=== PATIENT | male | born 1985 | race Caucasian/White ===

== ENCOUNTER 2020-10-03 10:34 | Observation (INO) ==
[2020-10-03] MEDS ORDERED: Ondansetron 4 MG/2 ML VIAL IVP ONE ×2 (10:55→12:50)
[2020-10-03] MEDS ORDERED: Morphine Sulfate 2 MG/ML SYRINGE IVP ONE (10:55)
[2020-10-03] MEDS ORDERED: Isovue-370 500 ML BOTTLE IVP ONE (10:57)
[2020-10-03 11:02] LABS: Bilirubin,Urine Negative (Negative); Blood,Urine Negative (Negative); Clarity,Urine Clear (Clear); Color,Urine Light-Yellow (Yellow); Glucose,Urine (UA) Normal (Normal); Ketones,Urine 20 mg/dL (Negative); Leukocyte Esterase,Urine Negative (Negative); Nitrite,Urine Negative (Negative); Protein,Urine Trace mg/dL (Neg-Trace); Specific Gravity,Urine 1.024 (1.010-1.025); Urobilinogen,Urine Normal (Normal)
[2020-10-03 11:26] LABS: Basophils # 0.1 K/mcL (0.0-0.2); Basophils % 0.3 %; Eosinophils % 0.1 %; Hematocrit 41.8 % (37.5-50.1); Hemoglobin 13.8 g/dL (12.9-16.9); Immature Granulocytes % 0.4 % (0-4); Lymphocytes # 1.3 K/mcL (0.6-4.6); Lymphocytes % 6.7 %; Mean Corpuscular Hemoglobin 27.8 pg (28.0-33.3); Mean Corpuscular Volume 84.3 fL (83.0-100.0); Mean Platelet Volume 9.5 fL (9.4-12.4); Monocytes # 1.9 K/mcL (0.0-1.3); Monocytes % 9.6 %; Neutrophils # 16.2 K/mcL (1.6-8.9); Platelet Count 387 K/mcL (140-400); Red Blood Count 4.96 M/mcL (4.19-5.50); Red Cell Distribution Width 12.5 % (11.5-14.5); Segmented Neutrophils % 82.9 %; White Blood Count 19.6 K/mcL (4.3-11.1)
[2020-10-03 11:48] LABS: Alanine Aminotransferase 26 Units/L (7-52); Albumin 4.6 g/dL (3.5-5.7); Albumin/Globulin Ratio 1.4 (1.1-2.2); Alkaline Phosphatase 44 Units/L (34-104); Aspartate Amino Transferase 17 Units/L (13-39); BUN/Creatinine Ratio 11 (6-26); Bilirubin,Total 0.7 mg/dL (0.3-1.0); Blood Urea Nitrogen 10 mg/dL (6-20); Calcium 9.4 mg/dL (8.6-10.3); Carbon Dioxide 29 mEq/L (23-29); Chloride 99 mEq/L (98-107); Globulin 3.3 g/dL (2.4-3.5); Glucose 120 mg/dL (70-105); Lipase 11 Units/L (11-82); Osmolality,Calculated 284 (280-300); Potassium 3.6 mEq/L (3.5-5.1); Sodium 137 mEq/L (136-145); Total Protein 7.9 g/dL (6.4-8.9); eGFR For African Americans > 60 (> 60); eGFR For Non-African Americans > 60 (> 60)
[2020-10-03] MEDS ORDERED: Piperacillin/Tazobactam 3.375 GM in Water for inj. (sterile) 20 ML IVP ONE (12:50)
[2020-10-03] MEDS ORDERED: 0.9 % Sodium Chloride 1,000 ML IVC ONE (12:50)
[2020-10-03] MEDS ORDERED: CefOXitin 1,000 MG VIAL ONE (13:27)
[2020-10-03] MEDS ORDERED: Isovue-300 50ML VIAL ONE (13:27)
[2020-10-03] MEDS ORDERED: *HR* Propofol 200 MG/20 ML VIAL IVP ONE (13:29)
[2020-10-03] MEDS ORDERED: Lidocaine -MPF 2% 2 ML VIAL ONE (13:30)
[2020-10-03] MEDS ORDERED: *HR* Rocuronium Bromide 50 MG/5 ML VIAL ONE (13:30)
[2020-10-03] MEDS ORDERED: *HR* FentaNYL (PF) 100 MCG/2 ML VIAL ONE ×2 (13:30→14:37)
[2020-10-03] MEDS ORDERED: Lidocaine HCL 4 ML Topical Solution (Laryng-O-Jet Kit Sterile Pak) TP ONE (13:30)
[2020-10-03] MEDS ORDERED: Ondansetron 4 MG/2 ML VIAL ONE (13:30)
[2020-10-03] MEDS ORDERED: Dexamethasone 4 MG/ML VIAL ONE (13:30)
[2020-10-03] MEDS ORDERED: *HR* Midazolam HCl 2 MG/2 ML VIAL ONE (13:30)
[2020-10-03] MEDS ORDERED: *HR* OxyCODONE Immed Rel 5 MG TABLET PO PRN (14:11)
[2020-10-03] MEDS ORDERED: Acetaminophen IV 1,000 MG/100 ML BAG IVPB PRN (14:11)
[2020-10-03] MEDS ORDERED: *HR* HYDROmorphone (PF) 1 MG/ML SYRINGE IVP PRN (14:11)
[2020-10-03] MEDS ORDERED: *HR* FentaNYL (PF) 100 MCG/2 ML VIAL IVP PRN (14:11)
[2020-10-03] MEDS ORDERED: Acetaminophen IV 1,000 MG/100 ML BAG IVPB ONE (14:34)
[2020-10-03] MEDS ORDERED: Ketorolac 30 MG/ML VIAL ONE (15:08)
[2020-10-03] MEDS ORDERED: Sugammadex Sodium 200 MG/2 ML VIAL IV ONE (15:21)
[2020-10-03] MEDS ORDERED: *HR* OxyCODONE/APAP 5/325 TABLET PO PRN (16:37)
[2020-10-03] MEDS ORDERED: *HR* Metoprolol 5 MG/5 ML VIAL IVP PRN (16:37)
[2020-10-03] MEDS ORDERED: Ondansetron 4 MG/2 ML VIAL IVP PRN (16:37)
[2020-10-03] MEDS: Piperacillin/Tazobactam 3.375 GM in 0.9 % Sodium Chloride Mini Bag 100 ML IVPB SCH (18:17)
[2020-10-03] MEDS: 0.9 % Sodium Chloride 1,000 ML IVC SCH (18:17)
[2020-10-03] MEDS: diazePAM 10 MG TABLET PO SCH (19:26)
[2020-10-03] MEDS: traZODone 50 MG TABLET PO SCH (19:27)
[2020-10-04] MEDS ORDERED: Melatonin 3 MG TABLET PO ONE (00:08)
[2020-10-04] MEDS: Piperacillin/Tazobactam 3.375 GM in 0.9 % Sodium Chloride Mini Bag 100 ML IVPB SCH ×3 (02:24→19:57)
[2020-10-04 02:37] LABS: Basophils % 0.1 %; Hematocrit 39.1 % (37.5-50.1); Immature Granulocytes % 0.6 % (0-4); Lymphocytes # 0.8 K/mcL (0.6-4.6); Lymphocytes % 4.9 %; Mean Corpuscular HGB Conc 33.2 g/dL (31.6-35.5); Mean Corpuscular Volume 84.3 fL (83.0-100.0); Mean Platelet Volume 9.7 fL (9.4-12.4); Monocytes # 1.7 K/mcL (0.0-1.3); Monocytes % 10.4 %; Neutrophils # 13.7 K/mcL (1.6-8.9); Platelet Count 335 K/mcL (140-400); Red Blood Count 4.64 M/mcL (4.19-5.50); White Blood Count 16.3 K/mcL (4.3-11.1)
[2020-10-04 02:57] LABS: BUN/Creatinine Ratio 14 (6-26); Blood Urea Nitrogen 10 mg/dL (6-20); Calcium 8.9 mg/dL (8.6-10.3); Carbon Dioxide 29 mEq/L (23-29); Chloride 105 mEq/L (98-107); Glucose 133 mg/dL (70-105); Osmolality,Calculated 289 (280-300); Potassium 4.2 mEq/L (3.5-5.1); Sodium 139 mEq/L (136-145); eGFR For African Americans > 60 (> 60); eGFR For Non-African Americans > 60 (> 60)
[2020-10-04] MEDS: Pantoprazole 40 MG VIAL IVP SCH (08:37)
[2020-10-04] MEDS: diazePAM 10 MG TABLET PO SCH ×2 (08:37→19:58)
[2020-10-04] MEDS ORDERED: diazePAM 10 MG TABLET PO SCH (09:00)
[2020-10-04] MEDS ORDERED: diazePAM 5 MG TABLET PO SCH (12:00)
[2020-10-04] MEDS ORDERED: Menthol 1 EACH LOZENGE PO PRN (16:45)
[2020-10-04] MEDS ORDERED: polyethylene glycoL 3350 17 GM POWD.PACK PO PRN (16:46)
[2020-10-04] MEDS: traZODone 50 MG TABLET PO SCH (19:58)
[2020-10-04] MEDS: 0.9 % Sodium Chloride 1,000 ML IVC SCH (22:49)
[2020-10-05] MEDS ORDERED: Melatonin 3 MG TABLET PO SCH (02:00)
[2020-10-05] MEDS: 0.9 % Sodium Chloride 1,000 ML IVC SCH (02:12)
[2020-10-05] MEDS: Piperacillin/Tazobactam 3.375 GM in 0.9 % Sodium Chloride Mini Bag 100 ML IVPB SCH (03:58)
[2020-10-05 05:37] LABS: Hematocrit 34.9 % (37.5-50.1); Mean Corpuscular HGB Conc 32.4 g/dL (31.6-35.5); Mean Corpuscular Hemoglobin 28.2 pg (28.0-33.3); Mean Platelet Volume 10.2 fL (9.4-12.4); Platelet Count 310 K/mcL (140-400); Red Blood Count 4.01 M/mcL (4.19-5.50); Red Cell Distribution Width 12.9 % (11.5-14.5)
[2020-10-05 05:39] LABS: Hemoglobin 11.3 g/dL (12.9-16.9)
[2020-10-05 05:59] LABS: Alanine Aminotransferase 245 Units/L (7-52); Albumin 3.5 g/dL (3.5-5.7); Albumin/Globulin Ratio 1.3 (1.1-2.2); Alkaline Phosphatase 109 Units/L (34-104); Aspartate Amino Transferase 288 Units/L (13-39); BUN/Creatinine Ratio 15 (6-26); Bilirubin,Direct 1.1 mg/dL (0.0-0.2); Bilirubin,Indirect 0.6 mg/dL (0.0-1.0); Bilirubin,Total 1.7 mg/dL (0.3-1.0); Blood Urea Nitrogen 10 mg/dL (6-20); Calcium 8.1 mg/dL (8.6-10.3); Carbon Dioxide 26 mEq/L (23-29); Chloride 107 mEq/L (98-107); Globulin 2.7 g/dL (2.4-3.5); Glucose 101 mg/dL (70-105); Osmolality,Calculated 287 (280-300); Potassium 3.7 mEq/L (3.5-5.1); Sodium 139 mEq/L (136-145); Total Protein 6.2 g/dL (6.4-8.9); eGFR For African Americans > 60 (> 60); eGFR For Non-African Americans > 60 (> 60)
[2020-10-05 06:30] VITALS: BP 123/77
[2020-10-05] MEDS: diazePAM 10 MG TABLET PO SCH (09:47)
[2020-10-05] MEDS: Pantoprazole 40 MG VIAL IVP SCH (09:47)
== END 2020-10-05 14:13 | disposition home or self-care (01) ==
LOC: EMEROOARM 10:34 → 3ANU 10:34
PROVIDERS: ADMIT Surgery; ATTEND Surgery